=== PATIENT | female | born 2000 | race African-American/Black ===

== ENCOUNTER → 2023-10-18 | Outpatient (CLI) | payer OTHER ==
[~2023-10-18] MED LIST: ISOVUE-300 61% 100ML VIAL As Ordered ONE; LIDOCAINE 1% MDV 20ML VIAL As Ordered ONE; TRIAMCINOLONE ACETONIDE SUSP 40MG/ML 1ML VIAL As Ordered ONE
== END ==
LOC: M RAD 13:36
PROVIDERS: ATTEND Physician Assistant Surgical
DX: S73.121A Ischiocapsular ligament sprain of right hip, initial encounter (principal); S73.12 Ischiocapsular (ligament) sprain of hip; X58.XXXA Exposure to other specified factors, initial encounter; Y92.9 Unspecified place or not applicable
CPT/HCPCS: 20610; 77002; J3301; Q9967

== ENCOUNTER 2024-07-30 15:27 | Emergency (ER) | payer OTHER ==
[~2024-07-30] VITALS: Ht 147.3 cm; Wt 57.5 kg
[2024-07-30] MEDS: ACETAMINOPHEN 500 MG TAB PO ONE (18:15)
[2024-07-30 19:19] LABS: KETONE, URINE AUTO RFX 1+ mg/dL (NEGATIVE); LEUKOCYTE ESTERASE UR AUTO RFX NEGATIVE (NEGATIVE); MUCUS, URINE RFX SMALL (NEGATIVE); NITRITE, URINE AUTO RFX NEGATIVE (NEGATIVE); RBC, URINE AUTO RFX 0 /HPF (0-3); SQUAM EPITHELIAL CELL UR AURFX 3 /HPF (0-6); WBC, URINE AUTO RFX 0 /HPF (0-3)
[2024-07-30 20:16] VITALS: BP 140/91; TEMP 97.3; O2SAT 100
== END 2024-07-30 20:23 | disposition home or self-care (01) ==
LOC: M ED 15:27 → EDBD 15:27 → M ED 20:23
DX: O26.891 Other specified pregnancy related conditions, first trimester (principal); M25.551 Pain in right hip; M25.552 Pain in left hip; Z32.01 Encounter for pregnancy test, result positive; Z3A.01 Less than 8 weeks gestation of pregnancy

== ENCOUNTER → 2024-10-04 | Outpatient (CLI) | payer OTHER | LOC: M PLAIMG 12:46 | DX: M54.59 Other low back pain (principal) ==

== ENCOUNTER 2025-02-17 22:10 | Outpatient (CLI) | payer OTHER ==
[~2025-02-17] VITALS: Ht 147.3 cm; Wt 66.5 kg
[2025-02-17 22:40] VITALS: BP 110/68
[2025-02-17] MEDS: ONDANSETRON 4MG/2ML VIAL IV ONE (23:46)
[2025-02-18] LABS: APPEARANCE, URINE CLEAR (CLEAR); BACTERIA, URINE AUTO NEGATIVE (NEGATIVE); BILIRUBIN, URINE AUTO NEGATIVE (NEGATIVE); BLOOD, URINE BLOOD NEGATIVE (NEGATIVE); GLUCOSE, URINE (UA) AUTO NEGATIVE (NEGATIVE); KETONE, URINE AUTO 1+ mg/dL (NEGATIVE); LEUKOCYTE ESTERASE, URINE AUTO NEGATIVE (NEGATIVE); MUCUS, URINE SMALL (NEGATIVE); NITRITE, URINE AUTO NEGATIVE (NEGATIVE); PROTEIN, URINE AUTO NEGATIVE (NEGATIVE); RBC, URINE AUTO 1 /HPF (0-3); SPECIFIC GRAVITY URINE AUTO 1.010 (1.002-1.035); SQUAMOUS EPITHELIAL CELL UR AU 0 /HPF (0-6); UROBILINOGEN, URINE AUTO 0.2 mg/dL (0.0-2.0); WBC, URINE AUTO 0 /HPF (0-3)
[2025-02-18 00:01] LABS: PLATELET COUNT, AUTOMATED 216 10^3/uL (150-450)
[2025-02-18] MEDS: ONDANSETRON 4MG ORAL DISINTEGRATING TAB PO ONE (00:06)
[2025-02-18 00:23] LABS: ALT/SGPT < 9 U/L (7.0-40); AST/SGOT 16 U/L (<34); CALCIUM LEVEL 8.6 MG/DL (8.5-10.1); CARBON DIOXIDE LEVEL 22 MMOL/L (20-31); CHLORIDE LEVEL 103 MMOL/L (98-107); CREATININE FOR GFR 0.58 MG/DL (0.55-1.30); GLOMERULAR FILTRATION RATE > 90.0 (>60); POTASSIUM SERUM 3.7 MMOL/L (3.5-5.1); SODIUM LEVEL 136 MMOL/L (136-145)
== END 2025-02-18 00:30 | disposition home or self-care (01) ==
LOC: M LDO 22:10
PROVIDERS: ATTEND Obstetrics & Gynecology
DX: O26.893 Other specified pregnancy related conditions, third trimester (principal); R10.84 Generalized abdominal pain; R11.0 Nausea; Z3A.33 33 weeks gestation of pregnancy
CPT/HCPCS: 36415; 59025; 80053; 81001; 85027; 96374; G0463; J2405